=== PATIENT | female | born 1995 | race African-American/Black ===

== ENCOUNTER 2016-08-14 12:06 | Inpatient (IN) | payer OTHER ==
[~2016-08-14] VITALS: Ht 160 cm; Wt 58.1 kg
[2016-08-14 12:55] LABS: MEAN CORPUSCULAR HEMOGLOBIN 29.9 pg (27.0-33.0); MEAN CORPUSCULAR HGB CONC 33.6 g/dl (32.0-36.5); MEAN CORPUSCULAR VOLUME 88.8 fl (80.0-96.0); WHITE BLOOD COUNT 3.7 K/mm3 (4.0-10.0)
[2016-08-14 13:08] LABS: AMPHETAMINES LEVEL URINE NEGATIVE (NEGATIVE); BENZODIAZEPINES URINE NEGATIVE (NEGATIVE); COCAINE METABOLITE URINE NEGATIVE (NEGATIVE); CONTROL LINE INT CTR LINE PRESENT; METHADONE URINE NEGATIVE (NEGATIVE); OPIATES URINE NEGATIVE (NEGATIVE); TRICYCLIC ANTIDEPRESS URINE POSITIVE (NEGATIVE)
[2016-08-14 13:12] LABS: CONTROL LINE HCG INT CTR LINE PRESENT
[2016-08-14 13:27] LABS: ALBUMIN 3.9 GM/DL (3.2-5.2); ALBUMIN/GLOBULIN RATIO 1.11 (1.00-1.93); ALKALINE PHOSPHATASE 72 U/L (45-117); ALT/SGPT 17 U/L (12-78); ANION GAP 5 MEQ/L (8-16); AST/SGOT 12 U/L (15-37); BILIRUBIN,DIRECT < 0.1 MG/DL (0.0-0.2); BILIRUBIN,TOTAL 0.2 MG/DL (0.2-1.0); BLOOD UREA NITROGEN 8 MG/DL (7-18); CALCIUM LEVEL 9.2 MG/DL (8.5-10.1); CARBON DIOXIDE LEVEL 30 MEQ/L (21-32); CHLORIDE LEVEL 106 MEQ/L (98-107); GLOMERULAR FILTRATION RATE > 60.0 (>60); GLUCOSE, FASTING 73 MG/DL (70-105); POTASSIUM SERUM 4.3 MEQ/L (3.5-5.1); SODIUM LEVEL 141 MEQ/L (136-145); TOTAL PROTEIN 7.4 GM/DL (6.4-8.2)
[2016-08-14] MEDS ORDERED: ACET50TAOT PO (15:18)
[2016-08-14] MEDS ORDERED: TRAZ50TA4 PO (15:18)
[2016-08-14] MEDS ORDERED: PRAZ2CAP PO (15:18)
[2016-08-14] MEDS ORDERED: FLON1SPR (15:18)
[2016-08-14] MEDS ORDERED: IBUP800T23 PO (15:18)
[2016-08-14] MEDS ORDERED: PARO30TA70 PO (15:18)
--- NOTE | 2016-08-14 17:00 | EDDOCDS ---
Physician Documentation [facility] Name: Hollie Hill Age: 21 yrs Sex: Female : 1995 Arrival Date: 08/14/2016 Time: 12:06 Bed BHU1 Private MD: Juanita [facility] Disposition: 08/14/16 14:48 Hospitalization ordered by Wale France for Inpatient Admission. Preliminary diagnosis is Major depressive disorder, single episode. - Bed requested for Admit. - Status is Inpatient Admission. hs1 - Condition is Stable. - Problem is new. - Symptoms are unchanged. Historical: - Allergies: no known allergies; - Home Meds: 1. paroxetine HCl 30 mg oral tab once daily 2. unknown - PMHx: Anxiety; - PSHx: wrist surgery; - Social history: Smoking status: Patient states was never smoker of tobacco. No barriers to communication noted, The patient speaks fluent Arabic, Speaks appropriately for age. - Family history: Not pertinent. - : The pt / caregiver states he / she is not on anticoagulants. Home medication list is obtained from the patient. - Exposure Risk Screening:: None identified. MIX TECHNICIAN: 08/14 12:14 LMP 07/31/2016 mlb1 Vital Signs: 12:08 BP 110 / 62; Pulse 96; Resp 18 S; Temp 98.1(O); Pulse Ox 100% on R/A; Weight 56.25 kg / gr2 124.01 lbs (R); Height 5 ft. 3 in. (160.02 cm) (R); Pain 0/10; 16:57 BP 103 / 66; Pulse 85; Resp 18; Temp 97.6; Pulse Ox 98% ; Pain 0/10; hs1 12:08 Body Mass Index 21.97 (56.25 kg, 160.02 cm) gr2 MDM: 12:36 Consult PFS/PSA/Movie Shot Cameraman ordered. br1 12:36 Consult PFS/PSA/Movie Shot Cameraman: Patient's case requires discussion with on-call br1 Psychiatrist ordered. 12:36 PSA/PFS to call Nursing [employer] Machine Mechanic, to enter patient data on [place] Safe Act if patient br1 involuntarily admitted or transferred for SI or HI ordered. 12:36 Confirm accurate psychiatric medication list and times of last dosage ordered. br1 12:36 Detain Pt Until Medically/PFS Cleared ordered. br1 12:37 Acetaminophen Level Ordered. EDMS 12:37 Basic Metabolic Profile Ordered. EDMS 12:37 Complete Blood Count Ordered. EDMS 12:37 Drug Eval Toxicology ED Only Ordered. EDMS 12:37 Ethyl Alcohol (ethanol) Ordered. EDMS 12:37 HCG,Serum Qualitative Ordered. EDMS 12:37 Liver Profile Ordered. EDMS 12:37 Salicylate Level Ordered. EDMS 12:37 Thyroid Stimulating Hormone Ordered. EDMS 13:10 Consult PFS/PSA/Movie Shot Cameraman complete. ml4 13:10 Consult PFS/PSA/Movie Shot Cameraman: Patient's case requires discussion with on-call ml4 Psychiatrist complete. 13:10 PSA/PFS to call Nursing [employer] Machine Mechanic, to enter patient data on [place] Safe [place] if patient ml4 involuntarily admitted or transferred for SI or HI complete. 14:46 Acetaminophen Level Reviewed. br1 14:46 Basic Metabolic Profile Reviewed. br1 14:46 Complete Blood Count Reviewed. br1 14:46 Drug Eval Toxicology ED Only Reviewed. br1 14:46 Liver Profile Reviewed. br1 14:46 Salicylate Level Reviewed. br1 14:46 Ethyl Alcohol (ethanol) Reviewed. br1 14:46 HCG,Serum Qualitative Reviewed. br1 14:46 Thyroid Stimulating Hormone Reviewed. br1 14:46 BED REQUEST+ADM ordered. EDMS 14:47 Admit to [facility]: ordered. EDMS 14:47 Consult PFS/PSA/Socail Worker: Cleared medically for eval ordered. br1 14:49 [facility] Legal paperwork was scanned into [employer] and attached to record. ml4 14:51 Consult PFS/PSA/Socail Worker: Cleared medically for eval complete. ml4 15:15 T-Sheet-- Draft Copy was scanned into [employer] and attached to record. gb 16:32 REGULAR DIET PLASTIC CERNA+DIET ordered. EDMS 16:47 Financial registration complete. gjb Signatures: Dispatcher [employer] EDMS Anabel Chery, Reg Reg gb Shan Hawkins RN RN mlb1 Priscilla Haddad, PSA PSA ml4 Cory Duong MD MD br1 Leonie Damon RN RN hs1 Jessica Gandhi RN RN aa3 Dania Garnettb The chart was reviewed and I authenticate all verbal orders and agree with the evaluation and treatment provided.Attachments: 15:15 T-Sheet-- Draft Copy gb MTDD
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
[2016-08-14 17:21] VITALS: BP 113/66
[2016-08-14] MEDS ORDERED: MAALOX 30 ML SUSP *UDC PO PRN (18:30)
[2016-08-14] MEDS ORDERED: ACETAMINOPHEN TAB 650MG DOSE (2X325MG) PO PRN (18:30)
[2016-08-14] MEDS ORDERED: MOM 30ML SUSPENSION UDC PO PRN (18:30)
[2016-08-14] MEDS ORDERED: traZODone 50 MG TAB PO PRN (18:30)
[2016-08-14] MEDS: PARoxetine 20 MG TAB PO SCH (20:55)
[2016-08-15 07:00] VITALS: BP 108/61
[2016-08-15] MEDS: PARoxetine 20 MG TAB PO SCH (09:01)
--- NOTE | 2016-08-15 11:34 | HPEPDOC ---
Medical History and Physical Date of Admission Aug 14, 2016 at 17:16 History and Physical PCP: [facility] ATTENDING: Dr. Stephan Nicholas HPI: 21yoF admitted to [facility] for unspecified depressive disorder, being medically examined today. No acute medical complaints today. Patient states she has an occasional headache. She uses Tylenol or ibuprofen as needed. Denies any fevers, chills, weakness, fatigue, ALONZO, CP, SOB, cough, palpitations, abdominal pain, N/V/D or changes in bowel or bladder habits. 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 ROS: As noted in HPI, otherwise 11pt ROS of systems reviewed and remarkable only for LMP 07/31/16 PE: GEN: 21 yo F, appears stated age. Well-nourished, well developed. No acute distress. Alert and oriented x 3. Pleasant, interactive. HEENT: Normocephalic, atraumatic. Pupils are equal, round, and reactive to light. Extraocular movements are intact. No nystagmus appreciated. Sclera are nonicteric. Conjunctiva without injection. Nose midline. Nasal turbinates without bogginess. EACs both patent BL. TMs both visualized and jones with good cone of light, no bulging or erythema. No facial asymmetry. Moist mucous membranes. Dentition fair. Pharynx pink and moist, no cobblestoning. Neck supple , trachea midline. No lymphadenopathy or thyromegaly appreciated. CHEST: Regular rate and rhythm, +S1, +S2 LUNGS: Clear to auscultation bilaterally. No wheezes, rales, or rhonchi. Breathing appears symmetric and easy. Patient is speaking in full sentences. No accessory muscle use. ABD: Round, soft, non-tender, non-distended. +Bowel sounds throughout. No rebound or guarding. No costovertebral angle tenderness. EXT: Pulses 2+ bilaterally dorsalis pedis and radial. No lower extremity edema appreciated. SKIN: [place], dry, warm. Capillary refill <2sec. No rashes. NEURO: Alert and oriented x 3. Cranial nerves III-XII are intact. No focal deficits appreciated. EKG: Pending A&P: 21yoF admitted to [facility] for unspecified depressive disorder 1. Psych. Plan per Psychiatry.Obtain baseline EKG to assure the safety of psychiatric medications as they can prolong the QT interval. 2. Occasional headache. Patient uses Tylenol or ibuprofen as needed. 3. Follow up with PCP on discharge. [facility]. 4. Staff member present throughout exam, Leena RENEE. Vital Signs Vital Signs Label Value Date Time Patient Temperature 97.0 degrees F 08/15/16 0700 Temperature Source Tympanic 08/15/16 0700 Pulse 85 08/15/16 0700 Respiratory Rate 20 bpm 08/15/16 0700 Blood Pressure Assessment 108/61 (77) 08/15/16 0700 Laboratory Data Labs 24H Laboratory Tests 2 08/14/16 12:46: Acetaminophen Level < 2.0L, Aspartate Amino Transf (AST/SGOT) 12L, Alanine Aminotransferase (ALT/SGPT) 17, Alkaline Phosphatase 72, Total Bilirubin 0.2, Direct Bilirubin < 0.1, Albumin 3.9, Albumin/Globulin Ratio 1.11, Anion Gap 5L, Calcium Level 9.2, Ethyl Alcohol Level < 0.003, Glomerular Filtration Rate > 60.0, Human Chorionic Gonadotropin, Qual NEGATIVE, Salicylates Level < 1.7L, Thyroid Stimulating Hormone (TSH) 2.250, Total Protein 7.4, Urine Amphetamine Level NEGATIVE, Urine Benzodiazepines Screen NEGATIVE, Urine Cannabinoids NEGATIVE, Urine Cocaine Metabolite NEGATIVE, Urine Opiates Screen NEGATIVE, Urine Barbiturates, Qualitative NEGATIVE, Urine Methadone Screen NEGATIVE, Urine Tricyclic Antidepressants POSITIVEH CBC/BMP Laboratory Tests 08/14/16 12:46 Red Blood Count 4.18, Mean Corpuscular Volume 88.8, Mean Corpuscular Hemoglobin 29.9, Mean Corpuscular Hemoglobin Concent 33.6, Red Cell Distribution Width 12.0 Home Medications Scheduled (Paroxetine) 30 Mg Tab 30 MG PO DAILY Prazosin Hcl (Prazosin HCl) 2 Mg Cap 2 MG PO QHS Scheduled PRN (Flonase Allergy Relief) 50 Mcg/Act Spr 50 MCG NA DAILY PRN PRN CONGESTION Acetaminophen (Acetaminophen) 500 Mg Tab 500 MG PO PRN PAIN Ibuprofen (Ibuprofen) 800 Mg Tab 800 MG PO TID PRN PRN PAIN Trazodone HCl (Trazodone HCl) 50 Mg Tab 50 MG PO QHS PRN PRN SLEEP Allergies Coded Allergies: No Known Allergies (Unverified , 08/14/16) Marleen Mcdermott Aug 15, 2016 11:34
[2016-08-15] MEDS ORDERED: hydrOXYzine 25 MG TAB PO PRN (12:30)
[2016-08-15] MEDS ORDERED: traZODone 100 MG TAB PO PRN (12:45)
[2016-08-15] MEDS: PARoxetine 10MG TABLET PO SCH (13:01)
--- NOTE | 2016-08-15 17:40 | ECGEPIP ---
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
[2016-08-15 18:00] VITALS: BP 111/55
[2016-08-15] MEDS: traZODone 100 MG TAB PO SCH (20:48)
[2016-08-15] MEDS ORDERED: PRAZOSIN 1 MG CAP PO SCH (21:00)
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
[2016-08-16 06:16] VITALS: BP 109/52
[2016-08-16] MEDS: FLUoxetine 10 MG CAP PO SCH (08:32)
[2016-08-16] MEDS: PARoxetine 10MG TABLET PO SCH (08:33)
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
[2016-08-16 18:00] VITALS: BP 101/51
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
--- NOTE | 2016-08-16 18:00 | EDDOCDS ---
Physician Documentation [facility] Name: Hollie Hill Age: 21 yrs Sex: Female : 1995 Arrival Date: 08/14/2016 Time: 12:06 Bed BHU1 Private MD: Juanita [facility] Disposition: 08/14/16 14:48 Hospitalization ordered by Wale France for Inpatient Admission. Preliminary diagnosis is Major depressive disorder, single episode. - Bed requested for Admit. - Status is Inpatient Admission. hs1 - Condition is Stable. - Problem is new. - Symptoms are unchanged. Historical: - Allergies: no known allergies; - Home Meds: 1. paroxetine HCl 30 mg oral tab once daily 2. unknown - PMHx: Anxiety; - PSHx: wrist surgery; - Social history: Smoking status: Patient states was never smoker of tobacco. No barriers to communication noted, The patient speaks fluent Korean, Speaks appropriately for age. - Family history: Not pertinent. - : The pt / caregiver states he / she is not on anticoagulants. Home medication list is obtained from the patient. - Exposure Risk Screening:: None identified. 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 3 in. (160.02 cm) (R); Pain 0/10; 16:57 BP 103 / 66; Pulse 85; Resp 18; Temp 97.6; Pulse Ox 98% ; Pain 0/10; hs1 12:08 Body Mass Index 21.97 (56.25 kg, 160.02 cm) gr2 MDM: 12:36 Consult PFS/PSA/Locksmith Apprentice ordered. br1 12:36 Consult PFS/PSA/Locksmith Apprentice: Patient's case requires discussion with on-call br1 Psychiatrist ordered. 12:36 PSA/PFS to call Nursing Garden Tractor Mechanic, to enter patient data on [place] Safe Act if patient br1 involuntarily admitted or transferred for SI or HI ordered. 12:36 Confirm accurate psychiatric medication list and times of last dosage ordered. br1 12:36 Detain Pt Until Medically/PFS Cleared ordered. br1 12:37 Acetaminophen Level Ordered. EDMS 12:37 Basic Metabolic Profile Ordered. EDMS 12:37 Complete Blood Count Ordered. EDMS 12:37 Drug Eval Toxicology ED Only Ordered. EDMS 12:37 Ethyl Alcohol (ethanol) Ordered. EDMS 12:37 HCG,Serum Qualitative Ordered. EDMS 12:37 Liver Profile Ordered. EDMS 12:37 Salicylate Level Ordered. EDMS 12:37 Thyroid Stimulating Hormone Ordered. EDMS 13:10 Consult PFS/PSA/Locksmith Apprentice complete. ml4 13:10 Consult PFS/PSA/Locksmith Apprentice: Patient's case requires discussion with on-call ml4 Psychiatrist complete. 13:10 PSA/PFS to call Nursing Garden Tractor Mechanic, to enter patient data on [place] Safe [place] if patient ml4 involuntarily admitted or transferred for SI or HI complete. 14:46 Acetaminophen Level Reviewed. br1 14:46 Basic Metabolic Profile Reviewed. br1 14:46 Complete Blood Count Reviewed. br1 14:46 Drug Eval Toxicology ED Only Reviewed. br1 14:46 Liver Profile Reviewed. br1 14:46 Salicylate Level Reviewed. br1 14:46 Ethyl Alcohol (ethanol) Reviewed. br1 14:46 HCG,Serum Qualitative Reviewed. br1 14:46 Thyroid Stimulating Hormone Reviewed. br1 14:46 BED REQUEST+ADM ordered. EDMS 14:47 Admit to COUNT [facility]CLUD[facility] THE [facility]: ordered. EDMS 14:47 Consult PFS/PSA/Socail Worker: Cleared medically for eval ordered. br1 14:49 MHE Legal paperwork was scanned into [employer] and attached to record. ml4 14:51 Consult PFS/PSA/Socail Worker: Cleared medically for eval complete. ml4 15:15 T-Sheet-- Draft Copy was scanned into [employer] and attached to record. gb 16:32 REGULAR DIET PLASTIC CERNA+DIET ordered. EDMS 16:47 Financial registration complete. gjb 17:05 [facility] Payment Agreement was scanned into [employer] and attached to record. gjb Signatures: Dispatcher [employer] EDMS Anabel Chery, Reg Reg gb Shan Hawkins RN RN mlb1 Priscilla Haddad, PSA PSA ml4 Cory Duong MD MD br1 Leonie Damon RN RN hs1 Jessica Gandhi RN RN aa3 Dania Garnettb The chart was reviewed and I authenticate all verbal orders and agree with the evaluation and treatment provided.Attachments: 15:15 T-Sheet-- Draft Copy gb 17:05 [facility] Payment Agreement robin Chart Complete MTDD
--- NOTE | 2016-08-16 18:00 | EDDOCDS ---
Physician Documentation [facility] Name: Hollie Hill Age: 21 yrs Sex: Female : 1995 Arrival Date: 08/14/2016 Time: 12:06 Bed BHU1 Private MD: Juanita [facility] Disposition: 08/14/16 14:48 Hospitalization ordered by Wale France for Inpatient Admission. Preliminary diagnosis is Major depressive disorder, single episode. - Bed requested for Admit. - Status is Inpatient Admission. hs1 - Condition is Stable. - Problem is new. - Symptoms are unchanged. Historical: - Allergies: no known allergies; - Home Meds: 1. paroxetine HCl 30 mg oral tab once daily 2. unknown - PMHx: Anxiety; - PSHx: wrist surgery; - Social history: Smoking status: Patient states was never smoker of tobacco. No barriers to communication noted, The patient speaks fluent Japanese, Speaks appropriately for age. - Family history: Not pertinent. - : The pt / caregiver states he / she is not on anticoagulants. Home medication list is obtained from the patient. - Exposure Risk Screening:: None identified. [employer]ING INTERNSHIP: 08/14 12:14 LMP 07/31/2016 mlb1 Vital Signs: 12:08 BP 110 / 62; Pulse 96; Resp 18 S; Temp 98.1(O); Pulse Ox 100% on R/A; Weight 56.25 kg / gr2 124.01 lbs (R); Height 5 ft. 3 in. (160.02 cm) (R); Pain 0/10; 16:57 BP 103 / 66; Pulse 85; Resp 18; Temp 97.6; Pulse Ox 98% ; Pain 0/10; hs1 12:08 Body Mass Index 21.97 (56.25 kg, 160.02 cm) gr2 MDM: 12:36 Consult PFS/PSA/Chemical Applicator ordered. br1 12:36 Consult PFS/PSA/Chemical Applicator: Patient's case requires discussion with on-call br1 Psychiatrist ordered. 12:36 PSA/PFS to call Nursing Matrix Repairer, to enter patient data on [place] Safe Act if patient br1 involuntarily admitted or transferred for SI or HI ordered. 12:36 Confirm accurate psychiatric medication list and times of last dosage ordered. br1 12:36 Detain Pt Until Medically/PFS Cleared ordered. br1 12:37 Acetaminophen Level Ordered. EDMS 12:37 Basic Metabolic Profile Ordered. EDMS 12:37 Complete Blood Count Ordered. EDMS 12:37 Drug Eval Toxicology ED Only Ordered. EDMS 12:37 Ethyl Alcohol (ethanol) Ordered. EDMS 12:37 HCG,Serum Qualitative Ordered. EDMS 12:37 Liver Profile Ordered. EDMS 12:37 Salicylate Level Ordered. EDMS 12:37 Thyroid Stimulating Hormone Ordered. EDMS 13:10 Consult PFS/PSA/Chemical Applicator complete. ml4 13:10 Consult PFS/PSA/Chemical Applicator: Patient's case requires discussion with on-call ml4 Psychiatrist complete. 13:10 PSA/PFS to call Nursing Matrix Repairer, to enter patient data on [place] Safe [place] if patient ml4 involuntarily admitted or transferred for SI or HI complete. 14:46 Acetaminophen Level Reviewed. br1 14:46 Basic Metabolic Profile Reviewed. br1 14:46 Complete Blood Count Reviewed. br1 14:46 Drug Eval Toxicology ED Only Reviewed. br1 14:46 Liver Profile Reviewed. br1 14:46 Salicylate Level Reviewed. br1 14:46 Ethyl Alcohol (ethanol) Reviewed. br1 14:46 HCG,Serum Qualitative Reviewed. br1 14:46 Thyroid Stimulating Hormone Reviewed. br1 14:46 BED REQUEST+ADM ordered. EDMS 14:47 Admit to [facility]: ordered. EDMS 14:47 Consult PFS/PSA/Socail Worker: Cleared medically for eval ordered. br1 14:49 [facility] Legal paperwork was scanned into [employer] and attached to record. ml4 14:51 Consult PFS/PSA/Socail Worker: Cleared medically for eval complete. ml4 15:15 T-Sheet-- Draft Copy was scanned into [employer] and attached to record. gb 16:32 REGULAR DIET PLASTIC CERNA+DIET ordered. EDMS 16:47 Financial registration complete. gjb 17:05 [facility] Payment Agreement was scanned into [employer] and attached to record. gjb Signatures: Dispatcher [employer] EDMS Anabel Chery, Reg Reg gb Shan Hawkins RN RN mlb1 Priscilla Haddad, PSA PSA ml4 Cory Duong MD MD br1 Leonie Damon RN RN hs1 Jessica Gandhi RN RN aa3 Dania Garnettb The chart was reviewed and I authenticate all verbal orders and agree with the evaluation and treatment provided.Attachments: 15:15 T-Sheet-- Draft Copy gb 17:05 [facility] Payment Agreement robin Chart Complete MTDD
[2016-08-16] MEDS: traZODone 100 MG TAB PO SCH (20:36)
[2016-08-16] MEDS: PRAZOSIN 1 MG CAP PO SCH (20:37)
[2016-08-17 06:53] VITALS: BP 93/50
[2016-08-17] MEDS: FLUoxetine 10 MG CAP PO SCH (08:09)
[2016-08-17 18:12] VITALS: BP 105/59
[2016-08-17] MEDS: PRAZOSIN 1 MG CAP PO SCH (20:47)
[2016-08-17] MEDS: traZODone 50 MG TAB PO PRN (22:16)
[2016-08-18 06:25] VITALS: BP 105/57
[2016-08-18] MEDS: FLUoxetine 10 MG CAP PO SCH (08:20)
[2016-08-18 18:00] VITALS: BP 108/64
[2016-08-18] MEDS: PRAZOSIN 1 MG CAP PO SCH (21:33)
[2016-08-18] MEDS: traZODone 50 MG TAB PO PRN (21:33)
[2016-08-19 06:41] VITALS: BP 142/58
[2016-08-19] MEDS ORDERED: FLUoxetine 20 MG CAP PO SCH (09:00)
--- NOTE | 2016-08-19 10:00 | IPN ---
DATE: 08/17/2016 SUBJECTIVE: "The medication at bedtime is too strong". "It is difficult to stay awake in the morning". OBJECTIVE: No major changes from yesterday. The patient is improving slowly. The patient is able to contract for safety in our unit. Patient states that Prazosin seems to be working for her nightmares. Denies side effect from medication except the above mentioned excessive sedation with Prazosin. Discussed treatment plan with the patient. MENTAL STATUS EXAMINATION: Patient dressed in [facility]. Patient is clean and well groomed. Has fair eye contact. Speech is slow and monotone. Mood is depressed and anxious but improving. Affect is restricted but also improving. No delusions or hallucinations. Memory is fair. Patient is fully oriented. Associations are intact. Thinking is logical. Thought content is appropriate. Patient is able to contract for safety and denies suicidal or homicidal ideation during the interview. Insight and judgment is limited. ASSESSMENT: 1. Posttraumatic stress disorder. 2. Depression. 3. Suicidal ideation. 4. Nightmares. PLAN: 1. Decrease trazodone to 50 mg by mouth daily at bedtime. 2. Continue with Prozac 10 mg by mouth daily every morning. Probably will increase tomorrow to 20 if patient tolerates well the medication. 3. Continue with Prazosin 1 mg by mouth daily at bedtime.
[2016-08-19] MEDS ORDERED: traZODone 100 MG TAB PO PRN (11:45)
--- NOTE | 2016-08-19 16:59 | IPN ---
DATE: 08/18/2016 SUBJECTIVE: "I'm feeling a little better." OBJECTIVE: The patient reports she is sleeping better, although she believes that the medication at bedtime are "maybe too strong." The patient denies side effects from the Prozac. No evidence of psychotic symptoms. The patient is motivated for treatment. The patient is able to contract for safety in our unit. MENTAL STATUS EXAMINATION: The patient is dressed in [facility]. The patient is cooperative during the exam, has fair eye contact. Speech is slow and monotone. Mood is depressed and anxious. Affect is restricted. The patient is denying suicidal or homicidal ideation during the interview and is able to contract for safety in our unit. No delusions or hallucinations. Memory is fair. The patient is fully oriented. Associations are intact. Thinking is logical. Thought content is appropriate. Insight and judgment is fair. ASSESSMENT: 1. Post-traumatic stress disorder (PTSD). 2. Suicidal ideation. 3. Nightmares. PLAN: 1. Continue with prazosin 1 mg by mouth nightly. 2. Increase Prozac to 20 mg by mouth every morning. 3. Continue with trazodone as needed for insomnia.
[2016-08-19 18:00] VITALS: BP 98/55
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
[2016-08-19] MEDS: PRAZOSIN 1 MG CAP PO SCH (21:22)
[2016-08-19] MEDS: traZODone 100 MG TAB PO SCH (21:22)
[2016-08-20 06:35] VITALS: BP 119/56
[2016-08-20] MEDS: FLUoxetine 10 MG CAP PO SCH (08:29)
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
[2016-08-20 18:00] VITALS: BP 117/61
[2016-08-20] MEDS: traZODone 100 MG TAB PO SCH (21:41)
[2016-08-20] MEDS: PRAZOSIN 1 MG CAP PO SCH (21:41)
[2016-08-21 06:39] VITALS: BP 124/57
[2016-08-21] MEDS: FLUoxetine 10 MG CAP PO SCH (08:16)
[2016-08-21] MEDS ORDERED: HYDR25T PO (13:25)
[2016-08-21] MEDS ORDERED: TRAZ50TA4 PO (13:25)
[2016-08-21] MEDS ORDERED: FLUO10CA9 PO (13:25)
[2016-08-21] MEDS ORDERED: MINI1CAP PO (13:25)
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
[2016-08-21 18:00] VITALS: BP 99/53
[2016-08-21 21:28] VITALS: BP 126/66
[2016-08-21] MEDS: PRAZOSIN 1 MG CAP PO SCH (21:28)
[2016-08-21] MEDS: traZODone 100 MG TAB PO SCH (21:28)
[2016-08-22 06:38] VITALS: BP 101/49
[2016-08-22] MEDS: FLUoxetine 10 MG CAP PO SCH (08:26)
[2016-08-22] MEDS ORDERED: traZODone 50 MG TAB PO PRN (10:00)
--- NOTE | 2016-08-22 15:27 | MHDS ---
DATE OF ADMISSION: 08/14/2016 DATE OF DISCHARGE: 08/22/2016 HISTORY OF PRESENT ILLNESS: A 21-year-old female admitted to our unit for depression and worsening symptoms of posttraumatic stress disorder (PTSD). This is a patient that has been treated by Ritika Bruner, nurse practitioner. The patient is stable. Ritika is absent today so I am involved in the discharge process of this patient. The patient is stable. The patient is denying suicidal or homicidal ideation. The patient is motivated for treatment. She wants to be discharged. A chain of command meeting has been held and everything went fine. The patient is denying side effect from the medication. The patient feels that the medication has been working well. MENTAL STATUS EXAMINATION AT DISCHARGE: The patient is dressed [facility]. The patient is calm and cooperative. Her speech is clear, coherent with normal rate and is spontaneous. The patient has good eye contact. Mood is euthymic. Affect is appropriate and congruent with mood. The patient is oriented to time, place, person, and situation. She maintains attention and concentration correctly. Instant recall, recent and remote memory are intact. Thought process are coherent, logical, and goal-directed. The patient does not have auditory or visual hallucinations. The patient does not have paranoid, persecutory, somatic, grandiose, or buddhism delusions. The patient denies suicidal or homicidal ideation. Insight and judgment are fair. DISCHARGE DIAGNOSES: AXIS I. Posttraumatic stress disorder (PTSD). Major depressive disorder. Insomnia. AXIS II: Deferred. AXIS III: Nonacute. INSTRUCTIONS TO THE PATIENT: The patient was followed by Ritika Bruner, nurse practitioner. Appointment has been setup for psychotropic medication management, individual psychotherapy, and primary care physician. Ritika Bruner has seen electronic (E) prescriptions to her pharmacy for the patient to take on an outpatient basis.
[2016-08-22] MEDS ORDERED: traZODone 50 MG TAB PO SCH (21:00)
[2016-08-23] MEDS ORDERED: FLUoxetine 10 MG CAP PO SCH (09:00)
== END 2016-08-22 10:40 | disposition home or self-care (01) | DRG 881 ==
LOC: M ED 12:06 → M PSY 17:16
PROVIDERS: ADMIT Psychiatry & Neurology Psychiatry; ATTEND Psychiatry & Neurology Psychiatry
DX: F32.9 Major depressive disorder, single episode, unspecified (principal); R45.851 Suicidal ideations; F43.10 Post-traumatic stress disorder, unspecified; G47.00 Insomnia, unspecified; R51 Headache; Z79.899 Other long term (current) drug therapy